=== PATIENT | female | born 1985 | race Caucasian/White ===

== ENCOUNTER 2018-02-14 11:16 | Outpatient (CLI) | payer OTHER, MEDICAID, SELFPAY ==
--- NOTE | 2018-02-15 13:52 | PM.OBTRLD ---
Visit Information Visit Information Date of evaluation: 02/14/18 Primary OB Provider: Kelsey Torres Reason for Evaluation: Yes non-stress test non-stress test reason: other (2 vessel cord) PFSH Medical History 1 para 1 (Resolved 2013) Surgical History History of third molar tooth extraction (Resolved 2010) Status post delivery (Resolved 03/23/14) Evaluation Evaluation Baseline heart rate: 140 Variability: Moderate (11-25) monitor accelerations: Present monitor decelerations: Absent Category of Tracing: I
== END 2018-02-14 12:10 | disposition home or self-care (01) ==
LOC: LABOR 11:38 → OB 02-15 14:51
PROVIDERS: PCP Obstetrics & Gynecology; Visit Provider Obstetrics & Gynecology
DX: O43.893 Other placental disorders, third trimester (principal); Z3A.30 30 weeks gestation of pregnancy
CPT/HCPCS: 59025; G0378; G0379

== ENCOUNTER 2018-02-21 10:45 | Outpatient (CLI) | payer OTHER, MEDICAID, SELFPAY ==
--- NOTE | 2018-02-21 11:30 | PM.OBTRLD ---
PFSH Medical History 1 para 1 (Resolved 2013) Surgical History History of third molar tooth extraction (Resolved 2010) Status post delivery (Resolved 03/23/14) Evaluation Evaluation Baseline heart rate: 135 Variability: Moderate (11-25) monitor accelerations: Present monitor decelerations: Absent Category of Tracing: I
--- NOTE | 2018-02-28 11:58 | PM.OBTRLD ---
PFSH Medical History 1 para 1 (Resolved 2013) Surgical History History of third molar tooth extraction (Resolved 2010) Status post delivery (Resolved 03/23/14) Evaluation Evaluation Baseline heart rate: 135 monitor accelerations: Present monitor decelerations: Absent Category of Tracing: I
== END 2018-02-21 11:40 | disposition home or self-care (01) ==
LOC: LABOR 11:34 → OB 10-09 15:26
PROVIDERS: PCP Obstetrics & Gynecology; Visit Provider Obstetrics & Gynecology
DX: O43.893 Other placental disorders, third trimester (principal); Z3A.31 31 weeks gestation of pregnancy
CPT/HCPCS: 59025; G0378; G0379

== ENCOUNTER 2018-03-01 10:39 | Outpatient (CLI) | payer OTHER, MEDICAID, SELFPAY ==
--- NOTE | 2018-03-01 19:53 | PM.OBTRLD ---
Visit Information Visit Information Date of evaluation: 03/01/18 Primary OB Provider: Kelsey Torres Reason for Evaluation: Yes non-stress test and Yes other Comments/Additional reasons for admission: 2 vessel cord PFSH Medical History 1 para 1 (Resolved 2013) Surgical History History of third molar tooth extraction (Resolved 2010) Status post delivery (Resolved 03/23/14) Evaluation Evaluation Baseline heart rate: 140 Variability: Moderate (11-25) monitor accelerations: Present monitor decelerations: Absent Category of Tracing: I
== END 2018-03-01 12:00 | disposition home or self-care (01) ==
LOC: LABOR 11:49 → OB 03-02 09:05
PROVIDERS: PCP Obstetrics & Gynecology; Visit Provider Obstetrics & Gynecology
DX: O43.893 Other placental disorders, third trimester (principal); Z3A.32 32 weeks gestation of pregnancy
CPT/HCPCS: 59025; 59050; G0378; G0379

== ENCOUNTER 2018-03-08 14:56 | Outpatient (CLI) | payer OTHER, MEDICAID, SELFPAY ==
--- NOTE | 2018-03-08 16:27 | PM.OBTRLD ---
PFSH Medical History 1 para 1 (Resolved 2013) Surgical History History of third molar tooth extraction (Resolved 2010) Status post delivery (Resolved 03/23/14) Evaluation Evaluation Baseline heart rate: 145 Variability: Moderate (11-25) monitor accelerations: Present monitor decelerations: Absent Category of Tracing: I Diagnosis, Plan/Disposition Final Diagnosis (1) Two vessel cord: Current Visit: No Status: Acute Plan/Disposition Plan: Follow up as scheduled for NST and office visit OB Disposition: home
== END 2018-03-08 15:52 | disposition home or self-care (01) ==
LOC: LABOR 15:06 → OB 03-09 11:06
PROVIDERS: Family Provider Obstetrics & Gynecology; PCP Obstetrics & Gynecology; Visit Provider Obstetrics & Gynecology
DX: O43.893 Other placental disorders, third trimester (principal); Z3A.33 33 weeks gestation of pregnancy
CPT/HCPCS: 59025; G0378; G0379

== ENCOUNTER 2018-03-14 10:43 | Observation (INO) | payer OTHER, MEDICAID, SELFPAY | END 2018-03-14 13:03 | disposition home or self-care (01) | PROVIDERS: Admitting Provider Obstetrics & Gynecology; PCP Obstetrics & Gynecology; Visit Provider Obstetrics & Gynecology | DX: Z34.83 Encounter for supervision of other normal pregnancy, third trimester (principal); Z3A.34 34 weeks gestation of pregnancy | CPT/HCPCS: 59025; 59050; G0378; G0379 ==

== ENCOUNTER 2018-03-21 10:08 | Outpatient (CLI) | payer OTHER, MEDICAID, SELFPAY ==
--- NOTE | 2018-03-26 14:55 | PM.OBTRLD ---
Visit Information Visit Information Date of evaluation: 03/21/18 Primary OB Provider: Kelsey Torres Reason for Evaluation: Yes non-stress test Comments/Additional reasons for admission: 2 vessel cord PFSH Medical History 1 para 1 (Resolved 2013) Surgical History History of third molar tooth extraction (Resolved 2010) Status post delivery (Resolved 03/23/14) Evaluation Evaluation Baseline heart rate: 135 Variability: Moderate (11-25) monitor accelerations: Present monitor decelerations: Absent Category of Tracing: I
== END 2018-03-21 11:00 | disposition home or self-care (01) ==
LOC: LABOR 10:28 → OB 03-24 10:11
PROVIDERS: Family Provider Obstetrics & Gynecology; PCP Obstetrics & Gynecology; Visit Provider Obstetrics & Gynecology
DX: O43.893 Other placental disorders, third trimester (principal); Z3A.35 35 weeks gestation of pregnancy
CPT/HCPCS: 59025; G0378; G0379

== ENCOUNTER 2018-03-28 10:05 | Outpatient (CLI) | payer OTHER, MEDICAID, SELFPAY ==
--- NOTE | 2018-03-28 10:57 | PM.OBTRLD ---
Visit Information Visit Information Date of evaluation: 03/28/18 Primary OB Provider: Kelsey Torres Reason for Evaluation: Yes non-stress test Comments/Additional reasons for admission: 2 vessel cord PFSH Medical History 1 para 1 (Resolved 2013) Surgical History History of third molar tooth extraction (Resolved 2010) Status post delivery (Resolved 03/23/14) Evaluation Evaluation Baseline heart rate: 145 Variability: Moderate (11-25) monitor accelerations: Present monitor decelerations: Absent Category of Tracing: I
== END 2018-03-28 11:10 | disposition home or self-care (01) ==
LOC: OB 14:29
PROVIDERS: PCP Obstetrics & Gynecology; Visit Provider Obstetrics & Gynecology
DX: O43.893 Other placental disorders, third trimester (principal); Z3A.36 36 weeks gestation of pregnancy
CPT/HCPCS: 59025; G0378; G0379

== ENCOUNTER → 2018-03-29 11:18 | Outpatient (CLI) | payer OTHER, MEDICAID, SELFPAY ==
[2018-03-30 13:16] LABS: Strep Grp B PCR NEG for Grp B Strep
== END ==
PROVIDERS: Family Provider Obstetrics & Gynecology; PCP Obstetrics & Gynecology; Visit Provider Obstetrics & Gynecology
DX: Z34.83 Encounter for supervision of other normal pregnancy, third trimester (principal)
CPT/HCPCS: 87653

== ENCOUNTER 2018-04-04 10:11 | Outpatient (CLI) | payer OTHER, MEDICAID, SELFPAY ==
--- NOTE | 2018-04-04 11:27 | PM.OBTRLD ---
Visit Information Visit Information Date of evaluation: 04/04/18 Primary OB Provider: Kelsey Torres Reason for Evaluation: Yes non-stress test non-stress test reason: other (2 vessel cord ) PFSH Medical History 1 para 1 (Resolved 2013) Surgical History History of third molar tooth extraction (Resolved 2010) Status post delivery (Resolved 03/23/14) Evaluation Evaluation Baseline heart rate: 135 Variability: Moderate (11-25) monitor accelerations: Present monitor decelerations: Absent Uterine Contraction Intensity: Mild Category of Tracing: I
== END 2018-04-04 11:22 | disposition home or self-care (01) ==
LOC: OB 04-05 14:13
PROVIDERS: Family Provider Obstetrics & Gynecology; PCP Obstetrics & Gynecology; Visit Provider Obstetrics & Gynecology
DX: O43.893 Other placental disorders, third trimester (principal); Z3A.37 37 weeks gestation of pregnancy
CPT/HCPCS: 59025; G0378; G0379

== ENCOUNTER 2018-04-11 10:14 | Outpatient (CLI) | payer OTHER, MEDICAID, SELFPAY ==
--- NOTE | 2018-04-11 11:00 | PM.OBTRLD ---
Visit Information Visit Information Date of evaluation: 04/11/18 Primary OB Provider: Kelsey Torres Reason for Evaluation: Yes non-stress test Comments/Additional reasons for admission: 2 vessel cord PFSH Medical History 1 para 1 (Resolved 2013) Surgical History History of third molar tooth extraction (Resolved 2010) Status post delivery (Resolved 03/23/14) Family History Mother No problems noted. Evaluation Evaluation Baseline heart rate: 145 Variability: Moderate (11-25) monitor accelerations: Present monitor decelerations: Absent Category of Tracing: I
== END 2018-04-11 11:00 | disposition home or self-care (01) ==
LOC: OB 04-14 16:41
PROVIDERS: PCP Obstetrics & Gynecology; Visit Provider Obstetrics & Gynecology
DX: O43.893 Other placental disorders, third trimester (principal); Z3A.38 38 weeks gestation of pregnancy
CPT/HCPCS: 59025; G0378; G0379

== ENCOUNTER 2018-04-17 06:10 | Inpatient (IN) | payer OTHER, MEDICAID, SELFPAY ==
[2018-04-17] VITALS (7 sets, daily range): BP systolic 92–124; BP diastolic 55–76; PULSE 80–88; RESP 11–20; TEMP 36.9–37; O2SAT 98–100
[2018-04-17] MEDS: LACTATED RINGERS 1,000 ML 999 ML IV (06:50)
--- NOTE | 2018-04-17 07:23 | SUR.OPER ---
Supine on Padded OR bed, head on pillow, safety belt at thigh, arms secured on padded arm boards at <90 degrees abduction. Bump under right buttock. Legs uncrossed with pillow under knees, gel pad to heels, tape over blanket to lower legs.
[2018-04-17 07:33] LABS: Add Manual Diff / Slide Review NO; Basophils Percent Auto 0.2 % (0-2); Eosinophils Percent Auto 0.8 % (2-4); Lymphocytes Percent Auto 19.8 % (25-40); Mean Corpuscular HGB Conc 34.2 % (30-36); Mean Corpuscular Hemoglobin 32.6 PG (26-34); Mean Corpuscular Volume 95.2 fL (80-100); Monocytes Percent Auto 6.1 % (3-14); Neutrophils Absolute Auto 9000 /uL (3000-5900); Neutrophils Percent Auto 73.1 % (50-75); Platelet Count 235 X10^3/uL (150-400); Red Blood Cell Count 3.99 X10^6/uL (4.0-5.2); Red Cell Distribution Width 12.9 % (11.6-14.8); White Blood Cell Count 12.4 X10^3/uL (4.5-11.0)
[2018-04-17] MEDS: LACTATED RINGERS 1,000 ML 125 ML IV (07:51)
[2018-04-17] MEDS: CEFAZOLIN 2 GM/100 ML FROZ.PIGGY IV (08:00)
--- NOTE | 2018-04-17 08:11 | PM.PREOP ---
Pre-operative Note Interval Note Pre-op Check: Yes History & Physical Reviewed by Physician Changes: No
--- NOTE | 2018-04-17 08:31 | SUR.OPER ---
VIABLE FEMALE DELIVERED AT 0822. PLACENTA AND CORD BLOOD TO OB WITH RN.
[2018-04-17] MEDS: MEPERIDINE 50 MG/ML 25 MG IV ×2 (09:05→09:20)
--- NOTE | 2018-04-17 09:07 | P.OP_ITS ---
Operative Date/Time/Diagnoses Date of procedure: 04/17/18 Time of procedure: 09:04 Pre-op diagnosis: 39 weeks gestation Previous section Post-op diagnosis: same Procedure: Procedures Operation Date: 04/17/18 07:45 Actual Procedures Side Surgeon p Section Not Applicable Kelsey Torres MD Repeat C section Indications: 39 weeks gestation Previous section Surgeon: Kelsey Torres Arc Cutter Plasma Arc: Jeri Lindo Anesthesia Type: Spinal (With Duramorph) Operative Notes Findings: Live female Direct occiput posterior presentation Normal uterus, tubes, and ovaries Closure Type: primary Specimen(s): other (Placenta and cord blood) Applied: catheter Estimated blood loss (mL): 350 Blood products transfused: none Procedure in detail: The patient was taken to the operating room where she was placed in the seated position. Spinal anesthesia with Duramorph was administered. The patient was then placed in the dorsal supine position with a leftward tilt. She was prepped and draped in the usual sterile fashion. A timeout was performed. After spinal analgesia was found to be adequate, a Pfannenstiel skin incision was made through the previous incision and carried through to the underlying layer fascia. The fascia was nicked in the midline, and the incision extended bilaterally with the Kenney scissors. The superior aspect of the fascial incision was grasped with a Maxx clamps, elevated, and the underlying rectus muscles dissected off sharply and bluntly. Attention was then turned to the inferior aspect of this incision which in a similar fashion was grasped with a Greenwood clamps, elevated, and the underlying rectus muscles dissected off sharply and bluntly. The rectus muscles were in the midline. The peritoneum was identified, grasped between 2 hemostats, and entered sharply with the Metzenbaum scissors. This incision was extended superiorly and inferiorly with good visualization of the bladder. The bladder blade was inserted. The vesicouterine peritoneum was identified, grasped with the pickup, and entered sharply with the Metzenbaum scissors. This incision was extended bilaterally, and the bladder flap was created digitally. The bladder blade was reinserted. The lower uterine segment was incised in a transverse fashion with the scalpel. Upon entering the amniotic sac there was moderate amount of clear amniotic fluid. The 's head was delivered without difficulty in the direct occiput posterior presentation. The nose and mouth were suctioned with bulb suction. The remainder of the body delivered without difficulty. The cord was double clamped and cut. The infant was handed off to waiting RN and RT. The placenta was delivered manually. The uterus was cleared of all clots and debris. The uterine incision was repaired with #1 chromic in a running interlocking fashion, and a second layer the same suture was used for an imbricating layer. Hemostasis was achieved. The tubes and ovaries were examined and were found to be normal. The gutters were cleared of all clots and debris. The bladder flap was reapproximated using 2-0 Vicryl in a running fashion. The parietal peritoneum was closed using 2-0 Vicryl in a running fashion. The fascia was reapproximated using 0 Vicryl in a running fashion. The subcutaneous layer was copiously irrigated with warm normal saline. 5 simple interrupted sutures of 3-0 Vicryl were placed to reapproximate the subcutaneous layer. The skin was closed with 4-0 undyed Vicryl in a subcuticular fashion. Steri-Strips were placed. An Aquacel dressing was placed. The uterus was expressed of a small amount of old blood. Sponge, lap, and instrument counts were correct x-2. The patient tolerated the procedure well, and was taken to PACU in stable condition. Complications: none Post-operative Condition: stable Disposition: PACU Plan for aftercare: [facility]
[2018-04-17] MEDS: OXYCODONE/ACETAMINOPHEN 5/325 TABLET 2 TAB PO ×3 (13:39→21:58)
[2018-04-17] MEDS: KETOROLAC 30 MG/ML VIAL IV ×2 (16:31→22:20)
[2018-04-18] MEDS: OXYCODONE/ACETAMINOPHEN 5/325 TABLET 2 TAB PO ×5 (02:59→20:41)
[2018-04-18] MEDS: KETOROLAC 30 MG/ML VIAL IV (04:35)
[2018-04-18 06:13] LABS: Hematocrit 35.6 % (36-46); Hemoglobin 12.1 g/dL (12.0-16.0)
[2018-04-18] MEDS: DOCUSATE 250 MG CAPSULE PO (07:33)
[2018-04-18] MEDS: PRENATAL VIT,CALC/IRON/FOLIC 1 TABLET 1 TAB PO (07:33)
[2018-04-18] MEDS: IBUPROFEN 600 MG TABLET PO ×3 (11:31→23:30)
[2018-04-19] MEDS: OXYCODONE/ACETAMINOPHEN 5/325 TABLET 2 TAB PO ×3 (00:44→09:18)
[2018-04-19] MEDS: IBUPROFEN 600 MG TABLET PO (05:31)
--- NOTE | 2018-04-19 08:41 | PM.PNPO.1 ---
Subjective Date Patient Seen: 04/18/18 Time Patient Seen: 08:41 Interval history: Patient is a 33-year-old 2 para 2 postop day # 1 status post repeat low-transverse section. is going well. Pain is well controlled with ibuprofen and Percocet. Bleeding is tapering. Patient has been able to void without the catheter. Exam Vital Signs (past 8 hours): Oxygen Delivery Method Room Air Narrative Exam Narrative: Generally: Patient is sitting up in bed, holding infant, no acute distress Lungs: Clear to auscultation bilaterally Cardiovascular: Regular rate and rhythm Fundus: Firm at U -1 Incision: Clean dry and intact with Aquacel dressing Extremities: No edema, negative Homans Objective Labs Result Diagrams: 04/18/18 05:58 Assessment & Plan Post-op (1) Status post repeat low transverse section: Current Visit: Yes Status: Acute Assessment and plan: Assessment: Postop day # 1 status post repeat low-transverse section, doing very well. Plan: Continue routine postop care Anticipate discharge 04/19/2018 Postoperative Procedures Operation Date: 04/17/18 07:45 Actual Procedures Side Surgeon p Section Not Applicable Kelsey Torres MD Time Spent With Patient less than 15 minutes
--- NOTE | 2018-04-19 08:44 | PM.OBDS.1 ---
Discharge Providers Date of admission: 04/17/18 06:10 Primary care physician: Kelsey Torres MD Consults: 04/17/18 09:32 Consult to Software Developer Mid Level Routine Comment: Discharge provider: Kelsey Torres MD Discharge Date: 04/19/18 Summary Date Patient Seen: 04/19/18 Time Patient Seen: 08:45 Hospital Course: Patient is a 33-year-old 2 para 2 who presented on 04/17/2018 for a scheduled repeat section at 39 weeks gestation. She underwent a repeat low-transverse section without complication. Her postoperative course was unremarkable. On postop day # 2 she was tolerating a diet, ambulating, voiding without catheter, pain well controlled, and going well. She was discharged home to follow up at 1 week for Aquacel dressing removal. Peripartum Data Infant Delivery Method: Section Laceration description: None Episiotomy description: None Procedures: Repeat low-transverse section Spinal anesthesia complications: none Discharge Diagnosis (1) Status post repeat low transverse section: Status: Acute Status at Discharge Functional status at discharge: independent ambulation Overall status at discharge: patient is progressing back to baseline Time Spent with Patient Total time spent providing and/or coordinating discharge services: Less than 30 minutes Specific discharge activities: No intercourse No heavy lifting Objective Labs Result Diagrams: 04/18/18 05:58 Discharge Plan Discharge Plan Patient Disposition: Home, Self-Care Discharge comment: Call with fever, chills, redness or drainage around incision or bleeding vaginally more than a pad in an hour Discharge Med Rec/Prescriptions Prescriptions: New oxycodone-acetaminophen [Percocet] 5-325 mg tablet 2 tab PO Q4-6H PRN (Reason: pain) Qty: 30 RF: 0 No Action [id number] fumarate-FA [] 28-800 mg-mcg Tablet 1 tab PO DAILY RF: 0 Follow up/Referrals: Kelsey Torres MD [Primary Care Provider] - 1 Week (Appointment with on Tuesday,April at 8:45 am) Provider Discharge Instructions Diet: Diet as Tolerated Activity: No intercourse Skin/Wound/Dressing Care Report to your healthcare provider any signs of infection, such as:: chills, fever, increased pain and unusual drainage Dressing: Do not remove Visit Report/Discharge Packet Instructions: DI for Visit Report Forms: Stroke Signs & Symptoms Discharge Data Primary Care Provider: Kelsey Torres Attending Provider: Kelsey Torres Admit Date/Time: 04/17/18 06:10
[2018-04-19] MEDS: PRENATAL VIT,CALC/IRON/FOLIC 1 TABLET 1 TAB PO (09:21)
[2018-04-19] MEDS: DOCUSATE 250 MG CAPSULE PO (09:21)
[2018-04-19 09:25] VITALS: BP 116/60; PULSE 83; RESP 16; TEMP 37
== END 2018-04-19 10:25 | disposition home or self-care (01) | DRG 540 ==
PROVIDERS: Admitting Provider Obstetrics & Gynecology; Family Provider Obstetrics & Gynecology; PCP Obstetrics & Gynecology; Visit Provider Obstetrics & Gynecology
PROC: 10D00Z1 Extraction of Products of Conception, Low, Open Approach (ICD-10-PCS; CPT 59514; principal; 2018-04-17 07:45)
DX: O34.211 Maternal care for low transverse scar from previous cesarean delivery (principal); Z3A.39 39 weeks gestation of pregnancy; Z37.0 Single live birth
CPT/HCPCS: 36415; 59050; 59514; 85014; 85018; 85025; 86850; 86900; 86901; J0690; J1100; J1885; J2175; J2274; J2405; J2590